=== PATIENT | female | born 1995 | race Caucasian/White ===

== ENCOUNTER 2025-07-07 07:42 | Outpatient (CLI) | payer OTHER | END 2025-07-07 07:43 | disposition home or self-care (01) | LOC: CSHMAMMO 07:42 | PROVIDERS: ATTEND Nurse Practitioner Family | DX: N63.12 Unspecified lump in the right breast, upper inner quadrant (principal); R92.323 Mammographic fibroglandular density, bilateral breasts | CPT/HCPCS: 77066; G0279 ==